=== PATIENT | male | born 1985 | race Caucasian/White ===

== ENCOUNTER 2018-05-05 15:31 | Emergency (ER) | payer SELFPAY ==
[2018-05-05] MEDS ORDERED: Ibuprofen 800 MG TAB ONE (15:52)
--- NOTE | 2018-05-05 17:10 | RAD ---
MANDIBLE: 05/05/18 Four views. HISTORY: Injury to chin. No evidence of mandibular fracture identified. IMPRESSION: No evidence of fracture. POS: [facility]
== END 2018-05-05 16:48 | disposition home or self-care (01) ==
LOC: NAV ERS 15:31
DX: S00.83XA Contusion of other part of head, initial encounter (principal); S80.812A Abrasion, left lower leg, initial encounter; S80.811A Abrasion, right lower leg, initial encounter; F17.210 Nicotine dependence, cigarettes, uncomplicated; W17.89XA Other fall from one level to another, initial encounter
CPT/HCPCS: 70110